=== PATIENT | female | born 1975 | race Caucasian/White ===

== ENCOUNTER 2019-09-21 11:48 | Outpatient (CLI) | payer MEDICAID ==
[2019-09-21] VITALS (17 sets, daily range): BP systolic 95–117; BP diastolic 70–89
== END 2019-09-21 23:59 | disposition home or self-care (01) ==
LOC: CARD DIAG 11:48
PROVIDERS: ATTEND Nurse Practitioner Family
DX: R42 Dizziness and giddiness (principal); Z87.898 Personal history of other specified conditions
CPT/HCPCS: 93660

== ENCOUNTER 2019-11-09 14:48 | Emergency (ER) | payer MEDICAID ==
[~2019-11-09] VITALS: Ht 177.8 cm; Wt 64.5 kg
[2019-11-09] MEDS ORDERED: normal saline 1000ml 1,000 ML IV ONE ×2 (16:10→17:00)
[2019-11-09] MEDS ORDERED: ketorolac tromethamine 15mg/ml inj. IV ONE (16:10)
[2019-11-09 17:42] VITALS: BP 123/81
== END 2019-11-09 17:44 | disposition home or self-care (01) ==
LOC: ER 14:49
DX: I49.8 Other specified cardiac arrhythmias (principal)
CPT/HCPCS: 96374; 99283; J1885; J7030